=== PATIENT | male | born 1965 | race Two or more races ===

== ENCOUNTER 2017-04-08 09:10 | Day surgery (SDC) | payer OTHER ==
[2017-04-08] VITALS (10 sets, daily range): BP systolic 110–123; BP diastolic 70–91; PULSE 66–96; RESP 13–18; Ht 165.1 cm; Wt 100.4 kg
[~2017-04-08] VITALS: Ht 165.1 cm; Wt 100.4 kg
[~2017-04-08 09:10] MED LIST: CEFAZOLIN 1 GM INJ ONE; CEFAZOLIN 2 GM/50 ML (PMX) 50 ML IVPB SCH; SEVOFLURANE 15 MIN ONE; SOD CHLORIDE 0.9% 1,000 ML IV SCH
[2017-04-08] MEDS ORDERED: ASPI81TA3 PO (09:59)
[2017-04-08] MEDS ORDERED: FURO20TA3 PO (10:00)
[2017-04-08] MEDS ORDERED: LISI10TA2 PO (10:00)
[2017-04-08 10:10] LABS: ADD SCAN DIFF NO
[2017-04-08 10:14] LABS: BASOPHILS % 0.7 % (0.0-2.0); EOSINOPHILS # 0.2 10^3/ul (0.0-0.5); EOSINOPHILS % 3.9 % (0.0-7.0); HEMATOCRIT 44.7 % (42.0-52.0); HEMOGLOBIN 15.6 g/dl (14.0-18.0); LYMPHOCYTES # 2.2 10^3/ul (0.8-2.9); LYMPHOCYTES % 37.4 % (15.0-51.0); MEAN CORPUSCULAR HGB CONC 34.9 g/dl (32.0-37.0); MEAN CORPUSCULAR VOLUME 88.7 fl (82.0-101.0); MEAN PLATELET VOLUME 10.3 fl (7.4-10.4); MONOCYTE # 0.7 10^3/ul (0.3-0.9); NEUTROPHIL # 2.8 10^3/ul (1.6-7.5); NEUTROPHILS % 46.7 % (39.0-77.0); PLATELET COUNT 208 10^3/UL (140-415); RED BLOOD COUNT 5.04 10^6/ul (4.70-6.10); RED CELL DISTRIBUTION WIDTH 12.3 % (11.5-14.5); WHITE BLOOD COUNT 5.9 10^3/ul (4.8-10.8)
[2017-04-08 10:36] LABS: CREATININE 0.87 mg/dl (0.61-1.24)
[2017-04-08 10:43] LABS: INR 0.94; PROTIME 12.6 Sec (12.2-14.2)
[2017-04-08 10:45] LABS: PARTIAL THROMBOPLASTIN TIME 29.9 Sec (25.0-35.0)
[2017-04-08] MEDS ORDERED: PROPOFOL 20 ML ONE (11:32)
[2017-04-08] MEDS ORDERED: ROCURONIUM 50 MG INJ ONE (11:32)
[2017-04-08] MEDS ORDERED: SUCCINYLCHOLINE CHLORIDE 100 MG/5 ML SYG IV ONE (11:32)
[2017-04-08] MEDS ORDERED: FENTAnyl 50 MCG/ML VIAL ONE (11:33)
[2017-04-08] MEDS ORDERED: ONDANSETRON 4 MG INJ ONE (11:33)
[2017-04-08] MEDS ORDERED: BUPIVACAINE 0.5%/EPI (SDV) 30 ML INJ ONE (12:23)
[2017-04-08] MEDS ORDERED: HYDROmorphONE (0.2 MG/ML) 10ML SYG IV PRN ×3 (12:30)
[2017-04-08] MEDS ORDERED: LABETALOL HCL 20MG INJ IV PRN (12:30)
[2017-04-08] MEDS ORDERED: FENTAnyl 50 MCG/ML VIAL IV PRN ×2 (12:30)
[2017-04-08] MEDS ORDERED: MEPERIDINE 25 MG INJ IV PRN (12:30)
[2017-04-08] MEDS ORDERED: ONDANSETRON 4 MG INJ IV PRN (12:30)
[2017-04-08] MEDS ORDERED: hydrALAzine 20 MG INJ IV PRN (12:30)
--- NOTE | 2017-04-08 13:18 | OPR ---
DATE OF OPERATION: 04/08/2017 PREOPERATIVE DIAGNOSIS: Anal fistula. POSTOPERATIVE DIAGNOSIS: Transsphincteric anal fistula. PROCEDURE PERFORMED: Anal exam under anesthesia and fistulotomy. SURGEON: Jt Bocanegra MD AIRBRUSH PAINTER: Violetta Weaver MD ANESTHESIOLOGIST: Alphonse Alvarez MD INDICATIONS FOR PROCEDURE: The patient is a 51-year-old male who presented with perianal drainage. On exam in the office, there was evidence of a fistula tract at the 12 o'clock location. The patie nt was counseled as to the need for anal exam under anesthesia and fistulotomy. He consented and wa s scheduled for surgery. DESCRIPTION OF PROCEDURE: The patient was brought to the operating theater, placed under general en dotracheal tube anesthesia. He was then placed in the prone jackknife position. The buttocks were widely shaved, taped, prepped and draped in the usual sterile fashion. Initial digital exam of the anal cavity did not reveal evidence of anal mass. The anal retractors were inserted and the fistula tract at the 12 o'clock location was cannulated with a lacrimal duct probe. It was found to protru de into the anal canal by passing directly through the internal and external sphincter. At this point, the fistula tract that was not associated with the sphincter was incised with a scalp el. This left only a small amount, approximately 1 cm area that was going through the sphincter. Crispin Bocanegra made the decision that the wound was adequately drained and decision was made not to place a seton. The area was infiltrated with 0.5% Marcaine local anesthetic with epinephrine, and the wou nd was irrigated. Minimal residual bleeding was controlled with cautery and this concluded the proc edure. The patient tolerated the procedure well. The estimated blood loss was 10 mL. There were n o complications and the patient was transported in stable condition to the recovery room. Dictated By: JT BOCANEGRA MD TL/ALEXIA Conf#: [id number] DID#: [id number]
== END 2017-04-08 14:15 | disposition home or self-care (01) ==
LOC: SDS 09:10
PROVIDERS: ATTEND Surgery Surgical Oncology
DX: K60.3 Anal fistula (principal); I10 Essential (primary) hypertension; E66.01 Morbid (severe) obesity due to excess calories; Z68.36 Body mass index [BMI] 36.0-36.9, adult
CPT/HCPCS: 46270; 80048; 85025; 85610; 85730; J0690; J2405; J3010; J7999; Z7512; Z7610

== ENCOUNTER 2017-08-19 09:01 | Day surgery (SDC) | payer OTHER ==
[2017-08-19] VITALS (11 sets, daily range): BP systolic 104–111; BP diastolic 74–82; PULSE 54–64; RESP 17–20; Ht 165.1 cm; Wt 99.0 kg
[~2017-08-19] VITALS: Ht 165.1 cm; Wt 99.0 kg
[~2017-08-19 09:01] MED LIST changes: +ASPI81TA3 PO; -CEFAZOLIN 1 GM INJ ONE; +CEFAZOLIN 2 GM/50 ML (PMX) 50 ML IVPB ONE; -CEFAZOLIN 2 GM/50 ML (PMX) 50 ML IVPB SCH; +FURO20TA3 PO; +LISI10TA2 PO; -SEVOFLURANE 15 MIN ONE; +SUCCINYLCHOLINE CHLORIDE 100 MG/5 ML SYG IV ONE
[2017-08-19 10:41] LABS: BASOPHILS % 0.5 % (0.0-2.0); EOSINOPHILS # 0.3 10^3/ul (0.0-0.5); EOSINOPHILS % 3.8 % (0.0-7.0); HEMATOCRIT 43.9 % (42.0-52.0); HEMOGLOBIN 14.9 g/dl (14.0-18.0); LYMPHOCYTES % 29.8 % (15.0-51.0); MEAN CORPUSCULAR HEMOGLOBIN 30.3 pg (29.0-33.0); MEAN CORPUSCULAR HGB CONC 33.9 g/dl (32.0-37.0); MEAN CORPUSCULAR VOLUME 89.4 fl (82.0-101.0); MEAN PLATELET VOLUME 10.5 fl (7.4-10.4); MONOCYTE # 0.6 10^3/ul (0.3-0.9); MONOCYTES % 8.9 % (0.0-11.0); NEUTROPHIL # 3.8 10^3/ul (1.6-7.5); NEUTROPHILS % 56.8 % (39.0-77.0); PLATELET COUNT 191 10^3/UL (140-415); RED BLOOD COUNT 4.91 10^6/ul (4.70-6.10); RED CELL DISTRIBUTION WIDTH 12.8 % (11.5-14.5); WHITE BLOOD COUNT 6.6 10^3/ul (4.8-10.8)
--- NOTE | 2017-08-19 10:53 | RADRPT ---
PROCEDURE: XR Chest 1 View. CLINICAL INDICATION: Abnormal breath sounds, preop. TECHNIQUE: AP view of the chest was obtained. COMPARISON: None. FINDINGS: The cardiomediastinal silhouette is within normal limits. Elevated right hemidiaphragm is identified . No consolidations are identified. No pneumothorax is seen. Osseous structures are intact. IMPRESSION: Elevated right hemidiaphragm. Clear lungs. RPTAT: AA .Jareth Stahl MD, MD Date Time Electronically viewed and signed by .Jareth Stahl MD, on 08/19/2017 10:52 .P/
[2017-08-19 10:58] LABS: PARTIAL THROMBOPLASTIN TIME 30.2 Sec (25.0-35.0)
[2017-08-19 11:01] LABS: ALBUMIN 4.3 g/dl (3.3-4.9); ALBUMIN/GLOBULIN RATIO 1.16; BILIRUBIN,INDIRECT 0.4 mg/dl (0-1.1); BILIRUBIN,TOTAL 0.4 mg/dl (0.2-1.3)
[2017-08-19 11:04] LABS: CALCIUM 9.1 mg/dl (8.4-10.2); CREATININE 0.9 mg/dl (0.61-1.24); POTASSIUM 4.2 mmol/L (3.5-5.1)
[2017-08-19 11:15] LABS: INR 0.93; PROTIME 12.5 Sec (12.2-14.2)
[2017-08-19] MEDS ORDERED: GLYCOPYRROLATE 0.4 MG INJ ONE ×2 (11:47→14:28)
[2017-08-19] MEDS ORDERED: DEXAMETHASONE 4 MG/ML 1 ML INJ ONE ×2 (11:47→14:29)
[2017-08-19] MEDS ORDERED: ROCURONIUM 50 MG INJ ONE ×2 (11:47→14:28)
[2017-08-19] MEDS ORDERED: ONDANSETRON 4 MG INJ ONE ×2 (11:47→14:29)
[2017-08-19] MEDS ORDERED: PROPOFOL 0 ML ONE (11:47)
[2017-08-19] MEDS ORDERED: CEFAZOLIN 1 GM INJ ONE ×2 (11:47→14:28)
[2017-08-19] MEDS ORDERED: MIDAZOLAM 1 MG/ML 2 ML INJ ONE ×2 (11:47→14:28)
[2017-08-19] MEDS ORDERED: FENTAnyl 50 MCG/ML VIAL ONE ×2 (11:47→14:28)
[2017-08-19] MEDS ORDERED: NEOSTIGMINE 3 MG/3 ML SYRINGE ONE ×2 (11:47→14:28)
[2017-08-19] MEDS ORDERED: BUPIVACAINE 0.5% (SDV) 30 ML INJ ONE ×2 (12:08→15:17)
--- NOTE | 2017-08-19 14:06 | RADRPT ---
Vent Rate: 61 bpm RR Interval: [address] Interval: 206 msec QRS Duration: 92 msec QT Interval: 440 msec QTC Interval: 442 msec P-R-T [place]: 45 - -12 - 48 degrees Normal sinus rhythm Normal ECG Electronically Signed By: Gabe Lee [id number]
[2017-08-19] MEDS ORDERED: PROPOFOL 20 ML ONE (14:28)
[2017-08-19] MEDS ORDERED: BUPIVACAINE 0.25% (MPF) 30 ML INJ ONE (15:17)
[2017-08-19] MEDS ORDERED: HYDROCODONE/APAP (5/325) TAB PO ONE (16:30)
--- NOTE | 2017-08-19 20:29 | OPR ---
DATE OF OPERATION: 08/19/2017 PREOPERATIVE DIAGNOSIS: Anal fistula. POSTOPERATIVE DIAGNOSIS: Anal fistula. OPERATIVE PROCEDURE: Anal exam under anesthesia and fistulotomy. ANESTHESIOLOGIST: Alex Manley MD SURGEON: Jt Bocanegra MD FLAGGER: Violetta Weaver MD INDICATIONS FOR PROCEDURE: Patient is a 52-year-old male who has had previous anal fistulas. He presented with purulent drainage from his perianal region. Exam in the office revealed a fistula at the 12 o'clock location. He is counseled as to the benefits of fistulotomy, consented, and was scheduled for surgery. DESCRIPTION OF PROCEDURE: Patient was brought to the operating theater, placed under general anesthesia. He was then placed in the prone jaciel-knife position. The buttocks was widely shaved, taped, prepped and draped in the usual sterile fashion. Initial digital exam of the anal canal did not reveal evidence of mass. There was some enlarged hemorrhoidal tissue. The fistula site was identified. With gentle pressure in the anal canal, pus was expressed through the fistula site. A lacrimal duct probe was then used to cannulate it. It was found to be a submucosal. A fistulotomy was performed with cautery directly over the lacrimal duct probe. This allowed complete opening of the fistulous tract. The minimal bleeding was controlled with cautery. The wound was irrigated and then infiltrated with 0.5 percent Marcaine local anesthetic, and a sterile dressing was applied. Patient tolerated procedure well. ESTIMATED BLOOD LOSS: 10 mL. COMPLICATIONS: There were no complications and the patient was transported in stable condition to the recovery room. Dictated By: Jt Bocanegra MD /mukult/g /Document#: [id number]
== END 2017-08-19 17:18 | disposition home or self-care (01) ==
LOC: SDS 09:01
PROVIDERS: ATTEND Surgery Surgical Oncology
DX: K60.3 Anal fistula (principal); I10 Essential (primary) hypertension; E66.9 Obesity, unspecified; Z68.36 Body mass index [BMI] 36.0-36.9, adult
CPT/HCPCS: 46270; 71010; 80053; 85025; 85610; 85730; 93005; J0690; J1100; J2250; J2405; J2710; J3010; Z7512; Z7610; J7999